=== PATIENT | male | born 1950 | race Caucasian/White ===

== ENCOUNTER 2018-11-06 12:37 | Emergency (ER) | payer OTHER ==
[~2018-11-06] VITALS: Ht 195.6 cm; Wt 122.5 kg
--- NOTE | ~2018-11-06 | EKG ---
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
[2018-11-06] MEDS ORDERED: CALCIUM 500 +1 EAC5 PO (12:51)
[2018-11-06] MEDS ORDERED: GLUCOSAMINE HC500 MG PO (12:52)
[2018-11-06] MEDS ORDERED: FISH OIL 1,001000 M2 PO (12:52)
[2018-11-06] MEDS ORDERED: UNICOMPLEX M TA1 TA1 PO (12:52)
[2018-11-06] MEDS ORDERED: ECOTRIN325 MG PO (12:52)
[2018-11-06] MEDS ORDERED: CRANBERRY400 M1 PO (12:52)
[2018-11-06] MEDS ORDERED: EXTRA STRENGTH500 MG PO (12:53)
[2018-11-06] MEDS ORDERED: ALEVE220 MG PO (12:53)
[2018-11-06] MEDS ORDERED: ALKA-SELTZER E1 EACH PO (12:54)
[2018-11-06] MEDS ORDERED: ZEGERID 20 MG1 EACH PO (12:57)
[2018-11-06 13:01] LABS: ABSOLUTE NEUTROPHILS 5.2 thou/uL (1.4-8.2); BASOPHILS 0.6 % (0.0-2.0); EOSINOPHILS 1.5 % (0.0-3.0); HEMOGLOBIN 15.1 gm/dL (14.0-18.0); LYMPHOCYTES 32.2 % (24.0-44.0); MCH 29.5 pg (26.0-34.0); MCHC 34.3 g/dL (28.0-37.0); MCV 85.9 fL (80.0-100.0); PLATELET COUNT 252 thou/uL (150-400); POLYS 57.7 % (36.0-66.0); RBC 5.13 mil/uL (4.50-6.00); RDW 14.2 % (10.5-14.5); WBC 9.1 thou/uL (4.0-11.0)
[2018-11-06 13:09] LABS: ANION GAP 5 mmol/L (7-16); BUN 17 mg/dL (7-18); CALCIUM 8.8 mg/dL (8.5-10.1); CHLORIDE 104 mmol/L (98-107); CO2 29 mmol/L (21-32); CREATININE 0.9 mg/dL (0.7-1.3); GLUCOSE 99 mg/dL (74-106); POTASSIUM 3.7 mmol/L (3.5-5.1); SODIUM 138 mmol/L (136-145)
[2018-11-06 13:17] LABS: SGOT 21 U/L (15-37); SGPT 30 U/L (30-65); TOTAL BILIRUBIN 0.5 mg/dL (<0.1-1.0); TOTAL PROTEIN 7.2 g/dL (6.4-8.2); TROPONIN-I <0.06 ng/mL (<0.06)
[2018-11-06] MEDS ORDERED: LISINOPRIL10 MG PO (13:26)
[2018-11-06 13:27] LABS: URINE BILIRUBIN NEGATIVE (Negative); URINE BLOOD NEGATIVE (Negative); URINE CLARITY CLEAR; URINE COLOR YELLOW; URINE GLUCOSE-RANDOM* NEGATIVE (Negative); URINE KETONES NEGATIVE (Negative); URINE LEUKOCYTES-REFLEX NEGATIVE (Negative); URINE NITRITE-REFLEX NEGATIVE (Negative); URINE PROTEIN (DIPSTICK) NEGATIVE (Negative); URINE UROBILINOGEN 0.2 E.U./dl (0.2-1.0)
[2018-11-06 13:47] VITALS: BP 166/95
== END 2018-11-06 13:48 | disposition home or self-care (01) ==
LOC: ER 12:37
PROVIDERS: Nurse Practitioner Family
DX: I10 Essential (primary) hypertension (principal); M19.90 Unspecified osteoarthritis, unspecified site